=== PATIENT | male | born 1985 | race Caucasian/White ===

== ENCOUNTER 2021-01-13 23:51 | Emergency (ER) | payer SELFPAY ==
[~2021-01-13] VITALS: Ht 185.4 cm; Wt 88.6 kg
[2021-01-14] MEDS ORDERED: IV NORMAL SALINE 1000ML BAG 1,000 ML IV SCH
[2021-01-14 00:17] LABS: BASO # 0.1 x10^3/uL (0.0-0.2); BASO % 1 % (0-3); EOS # 0.1 x10^3/uL (0.0-0.7); EOS % 2 % (0-3); HEMATOCRIT 41.4 % (39.0-53.0); HEMOGLOBIN 14.3 g/dL (13.0-17.5); LYMPH # 2.1 x10^3/uL (1.0-4.8); LYMPH % 36 % (24-48); MEAN CORPUSCULAR HEMOGLOBIN 31 pg (25-35); MEAN CORPUSCULAR HGB CONC 35 g/dL (31-37); MEAN CORPUSCULAR VOLUME 90 fL (79-100); MONO # 1.2 x10^3/uL (0.0-1.1); MONO % 19 % (0-9); NEUT # 2.5 x10^3/uL (1.8-7.7); NEUT % 42 % (31-73); PLATELET COUNT 170 x10^3/uL (140-400); RED BLOOD COUNT 4.63 x10^6/uL (4.30-5.70); RED CELL DISTRIBUTION WIDTH 13.1 % (11.5-14.5)
--- NOTE | 2021-01-14 00:23 | PHYS DOC ---
Adult General Chief Complaint Chief Complaint: CHEST PAIN HPI HPI Patient is a 35 year old male with a known past medical history of substance abuse admits to using methamphetamines 3 hours prior to arrival prior history of IV drug abuse now presents emergency department plan of chest pain. Patient states his pain has been constant over the mid substernal region for the last 5 days. Going to another facility to get evaluated for this, states he had a full evaluation but left before he can get a diagnosis or treatment. States the pain is been present since the time. Denies any radiation. Has been associate mild lightheadedness but denies any associated nausea, vomiting of fever, chills, abdominal pain or back pain. Review of Systems Review of Systems Constitutional: Denies fever or chills [] Eyes: Denies change in visual acuity, redness, or eye pain [] HENT: Denies nasal congestion or sore throat [] Respiratory: Denies cough or shortness of breath [] Cardiovascular: No additional information not addressed in HPI [] GI: Denies abdominal pain, nausea, vomiting, bloody stools or diarrhea [] : Denies dysuria or hematuria [] Musculoskeletal: Denies back pain or joint pain [] Integument: Denies rash or skin lesions [] Neurologic: Denies headache, focal weakness or sensory changes [] Endocrine: Denies polyuria or polydipsia [] All other systems were reviewed and found to be within normal limits, except as documented in this note. Current Medications Current Medications Current Medications Medications (Trade) Dose Ordered Sig/Marni Start Time Stop Time Status Last Admin Dose Admin Sodium Chloride 1,000 ml @ 1,000 mls/hr Q1H 01/14/21 00:00 01/14/21 00:59 DC 01/14/21 00:14 1,000 MLS/HR Physical Exam Physical Exam Constitutional: Well developed, well nourished, no acute distress, non-toxic appearance. [] HENT: Normocephalic, atraumatic, bilateral external ears normal, oropharynx moist, no oral exudates, nose normal. [] Eyes: PERRLA, EOMI, conjunctiva normal, no discharge. [] Neck: Normal range of motion, no tenderness, supple, no stridor. [] Cardiovascular:Heart rate regular rhythm, no murmur [] Lungs & Thorax: Bilateral breath sounds clear to auscultation [] Abdomen: Bowel sounds normal, soft, no tenderness, no masses, no pulsatile masses. [] Skin: Warm, dry, no erythema, no rash. [] Back: No tenderness, no CVA tenderness. [] Extremities: No tenderness, no cyanosis, no clubbing, ROM intact, no edema. [] Neurologic: Alert and oriented X 3, normal motor function, normal sensory function, no focal deficits noted. [] Psychologic: Affect normal, judgement normal, mood normal. [] Current Patient Data Vital Signs Vital Signs Date Time Temp Pulse Resp B/P (MAP) Pulse Ox O2 Delivery O2 Flow Rate FiO2 01/13/21 23:55 98.7 108 19 151/92 (111) 100 Room Air 98.7 Lab Values Laboratory Tests Test 01/14/21 00:01 01/14/21 01:14 White Blood Count 6.0 x10^3/uL (4.0-11.0) Red Blood Count 4.63 x10^6/uL (4.30-5.70) Hemoglobin 14.3 g/dL (13.0-17.5) Hematocrit 41.4 % (39.0-53.0) Mean Corpuscular Volume 90 fL (79-100) Mean Corpuscular Hemoglobin 31 pg (25-35) Mean Corpuscular Hemoglobin Concent 35 g/dL (31-37) Red Cell Distribution Width 13.1 % (11.5-14.5) Platelet Count 170 x10^3/uL (140-400) Neutrophils (%) (Auto) 42 % (31-73) Lymphocytes (%) (Auto) 36 % (24-48) Monocytes (%) (Auto) 19 % (0-9) H Eosinophils (%) (Auto) 2 % (0-3) Basophils (%) (Auto) 1 % (0-3) Neutrophils # (Auto) 2.5 x10^3/uL (1.8-7.7) Lymphocytes # (Auto) 2.1 x10^3/uL (1.0-4.8) Monocytes # (Auto) 1.2 x10^3/uL (0.0-1.1) H Eosinophils # (Auto) 0.1 x10^3/uL (0.0-0.7) Basophils # (Auto) 0.1 x10^3/uL (0.0-0.2) Platelet Estimate Pending Sodium Level 139 mmol/L (136-145) Potassium Level 3.8 mmol/L (3.5-5.1) Chloride Level 103 mmol/L (98-107) Carbon Dioxide Level 27 mmol/L (21-32) Anion Gap 9 (6-14) Blood Urea Nitrogen 11 mg/dL (8-26) Creatinine 1.3 mg/dL (0.7-1.3) Estimated GFR (Cockcroft-Gault) 63.2 BUN/Creatinine Ratio 8 (6-20) Glucose Level 98 mg/dL (70-99) Calcium Level 9.2 mg/dL (8.5-10.1) Magnesium Level 2.1 mg/dL (1.8-2.4) Total Bilirubin 0.3 mg/dL (0.2-1.0) Aspartate Amino Transferase (AST) 28 U/L (15-37) Alanine Aminotransferase (ALT) 35 U/L (16-63) Alkaline Phosphatase 98 U/L (46-116) Troponin I Quantitative < 0.017 ng/mL (0.000-0.055) Total Protein 6.0 g/dL (6.4-8.2) L Albumin 3.6 g/dL (3.4-5.0) Albumin/Globulin Ratio 1.5 (1.0-1.7) Lipase 378 U/L (73-393) Urine Collection Type Unknown Urine Color Yellow Urine Clarity Clear Urine pH 8.0 (<5.0-8.0) Urine Specific [place] <=1.005 (1.000-1.030) Urine Protein Negative mg/dL (NEG-TRACE) Urine Glucose (UA) Negative mg/dL (NEG) Urine Ketones (Stick) Negative mg/dL (NEG) Urine Blood Negative (NEG) Urine Nitrite Negative (NEG) Urine Bilirubin Negative (NEG) Urine Urobilinogen Dipstick 1.0 mg/dL (0.2 mg/dL) Urine Leukocyte Esterase Negative (NEG) Urine RBC 0 /HPF (0-2) Urine WBC 0 /HPF (0-4) Urine Squamous Epithelial Cells Occ /LPF Urine Amorphous Sediment Present /HPF Urine Bacteria 0 /HPF (0-FEW) Urine Mucus Slight /LPF Urine Opiates Screen Neg (NEG) Urine Methadone Screen Neg (NEG) Urine Barbiturates Neg (NEG) Urine Phencyclidine Screen Neg (NEG) Urine Amphetamine/Methamphetamine Pos (NEG) Urine Benzodiazepines Screen Neg (NEG) Urine Cocaine Screen Neg (NEG) Urine Cannabinoids Screen Pos (NEG) Urine Ethyl Alcohol Neg (NEG) Laboratory Tests 01/14/21 00:01 Laboratory Tests 01/14/21 00:01 EKG EKG [] Radiology/Procedures Radiology/Procedures [] Course & Med Decision Making Course & Med Decision Making Pertinent Labs and Imaging studies reviewed. (See chart for details) 35M presenting with nonspecific substernal chest pain. Patient does admit to methamphetamine use and there is some concern for drug-seeking behavior given the patient's recent history of presenting for the same complaints and patient is repeatedly asking for stronger pain medication. Given the patient's history will obtain an ACS rule out before it is deemed safe to give the patient any pain medication. Labs reviewed and unremarkable. Chest x-ray without any significant abnormality. Feel patient is safe for discharge home. Dragon Disclaimer Dragon Disclaimer This electronic medical record was generated, in whole or in part, using a voice recognition dictation system. Departure Departure Impression: Primary Impression: Chest pain Disposition: 01 DC HOME SELF CARE/HOMELESS Condition: GOOD Referrals: LOLA MARTIN MD Patient Instructions: Chest Pain (Nonspecific) Additional Instructions: EMERGENCY DEPARTMENT GENERAL DISCHARGE INSTRUCTIONS Thank you for coming to [facility] Emergency Department (ED) today and trusting us with you care. We trust that you had a positive experience in our Emergency Department. If you wish to speak to the department management, you may call the Director at [phone]. YOUR FOLLOW UP INSTRUCTIONS ARE FOLLOWS: 1. Do you have a private Doctor? If you do not have a private doctor, please ask for a resource list of physicians or clinics that may be able to assist you with follow up care. 2. The Emergency Physicain has interpreted your x-rays. The X-Ray specialist will also review them. If there is a change in the findings, you will be notified in 48 hours when at all possible. 3. A lab test or culture has been done, your results will be reviewed and you will be notified if you need a change in treatment. ADDITIONAL INSTRUCTIONS AND INFORMATION: 1. Your care today has been supervised by a physician who is specially trained in emergency care. Many problems require more than one evaluation for a complete diagnosis and treatment. We recommend that you schedule your follow up appointment as recommended to ensure complete treatment of you illness or injury. If you are unable to obtain follow up care and continue to have a problem, or if your condition worsens, we recommend that you return to the ED. 2. We are not able to safely determine your condition over the phone nor are we able to give sound medical advice over the phone. For these safety reasons, if you call for medical advice we will ask you to come to the ED for further evaluation. 3. If you have any questions regarding these discharge instructions please call the ED at [phone]. SAFETY INFORMATION: In the interest of safety, wellness, and injury prevention; we encourage you to wear your sealbelt, if you smoke; quite smoking, and we encourage family to use a protective helmet for bicycling and other sporting events that present an increased risk for head injury. IF YOUR SYMPTOMS WORSEN OR NEW SYMPTOMS DEVELOP, OR YOU HAVE CONCERNS ABOUT YOUR CONDITION; OR IF YOUR CONDITION WORSENS WHILE YOU ARE WAITING FOR YOUR FOLLOW UP A PPOINTMENT; EITHER CONTACT YOUR PRIMARY CARE DOCTOR, THE PHYSICIAN WHOSE NAME AND NUMBER YOU WERE Elen NICOLAS, OR RETURN TO THE ED IMMEDIATELY. Scripts Naproxen (NAPROSYN) 500 Mg Tablet 1 TAB PO BID for pain, #20 TAB Prov: BRITTA MARQUIS MD 01/14/21 BRITTA MARQUIS MD Jan 14, 2021 00:23
[2021-01-14 00:40] LABS: CALCIUM 9.2 mg/dL (8.5-10.1); CREATININE 1.3 mg/dL (0.7-1.3); GFR 63.2; POTASSIUM 3.8 mmol/L (3.5-5.1)
--- NOTE | 2021-01-14 00:42 | RAD ---
XR CHEST 1V INDICATION: CHEST PAIN / Spl. Instructions: / History: . COMPARISON STUDY: None. FINDINGS: Lungs: Normal lung volume. No pulmonary mass or consolidation. The tracheobronchial tree and hilar st ructures are normal. Pleura: No pleural effusion or pneumothorax. Heart and Mediastinum: The cardiomediastinal silhouette is normal. The great vessels of the thorax ar e normal. Bones and Soft Tissues: The bones and soft tissues are within normal limits. IMPRESSION: No acute cardiopulmonary process. Electronically signed by: Dallin Osullivan MD (01/14/2021 12:40 AM) [facility]
[2021-01-14 00:47] LABS: ALBUMIN 3.6 g/dL (3.4-5.0); ALBUMIN/GLOBULIN RATIO 1.5 (1.0-1.7); MAGNESIUM 2.1 mg/dL (1.8-2.4); TOTAL BILIRUBIN 0.3 mg/dL (0.2-1.0)
[2021-01-14 01:29] LABS: BILIRUBIN,URINE NEGATIVE (NEG); CLARITY,URINE CLEAR; COLOR,URINE YELLOW; NITRITE,URINE NEGATIVE (NEG); PROTEIN,URINE NEGATIVE (NEG-TRACE)
[2021-01-14 01:35] LABS: BARBITURATES NEG (NEG); BENZODIAZEPINES NEG (NEG); CANNABINOIDS POS (NEG); COCAINE NEG (NEG); METHADONE NEG (NEG); OPIATES NEG (NEG); PHENCYCLIDINE NEG (NEG)
[2021-01-14 01:36] LABS: AMPHETAMINE/METHAMPHETAMINE POS (NEG)
[2021-01-14 01:39] LABS: AMORPHOUS SEDIMENT,UR PRESENT /HPF; BACTERIA,URINE 0 /HPF (0-FEW); RBC,URINE 0 /HPF (0-2); WBC,URINE 0 /HPF (0-4)
[2021-01-14 01:42] VITALS: BP 154/93
[2021-01-14] MEDS ORDERED: NAPR-683 PO (01:46)
[2021-01-14] MEDS ORDERED: IBUPROFEN 400 MG TABLET. PO ONE (02:00)
[2021-01-14] MEDS ORDERED: ACETAMINOPHEN 500 MG TABLET PO ONE (02:00)
--- NOTE | 2021-01-14 02:46 | EKG ---
[facility] [address] [place] [address] Test Date: 2021-01-13 Test Time: 23:56:10 Pat Name: KELLIE IGNACIO Department: Room: Gender: M Contact Lens Assistant: : [id number] Requested By: BRITTA MARQUIS Order Number: [id number] Reading MD: Measurements Intervals [place] Rate: 101 P: 1 MS: 154 QRS: -19 QRSD: 86 T: 54 QT: 330 QTc: 429 Interpretive Statements SINUS TACHYCARDIA LEFTWARD AXIS QRS(T) CONTOUR ABNORMALITY CONSISTENT WITH ANTEROSEPTAL INFARCT AGE UNDETERMINED ABNORMAL ECG RI6.02 No previous ECG available for comparison
[2021-01-14 03:55] LABS: % ATYL 4 % (0-0); % EOS 3 % (0-5); % LYMPHS 42 % (24-48); % MONOS 11 % (0-10); % SEGS 40 % (35-66)
[2021-01-14 03:56] LABS: PLT ESTIMATE ADEQUATE (ADEQUATE)
== END 2021-01-14 01:56 | disposition home or self-care (01) ==
LOC: ER 23:51
DX: R07.89 Other chest pain (principal); F15.10 Other stimulant abuse, uncomplicated
CPT/HCPCS: 36415; 71045; 80053; 80307; 81001; 83690; 83735; 84484; 85007; 85025; 93005; 96360; 99285; J7030

== ENCOUNTER 2021-03-15 14:22 | Emergency (ER) | payer SELFPAY ==
[~2021-03-15] VITALS: Ht 185.4 cm; Wt 82.7 kg
[~2021-03-15 14:22] MED LIST: NAPR-683 PO
--- NOTE | 2021-03-15 16:17 | RAD ---
Study: XR HAND_RIGHT 3 VIEWS Indication: Right hand pain. Recent fracture. Comparison: None. Findings: Acute, dorsally angulated and mildly displaced fractures at the fourth and fifth metacarpal bases. On the PA view it appears as if the fourth metacarpal fracture extends into the CMC joint. It is uncert ain if there is intra-articular extension at the fifth metacarpal fracture. No additional fracture se en throughout the hand. Edematous soft tissues adjacent to the fractures. Impression: Acute, dorsally angulated and mildly displaced fractures at the base of the fourth and fifth metacarp als. There is likely intra-articular extension into the fourth CMC joint. It is difficult to discern if there is intra-articular extension to the fifth CMC joint. Electronically signed by: PARUL ASHER MD (03/15/2021 4:14 PM) [facility]
[2021-03-15 17:00] VITALS: BP 129/88
[2021-03-15] MEDS ORDERED: HYDROcodone/APAP 5/325MG 1 TAB TABLET PO ONE (17:00)
[2021-03-15] MEDS ORDERED: HYDR-2761 PO (17:07)
--- NOTE | 2021-03-15 17:07 | ED.ADGEN ---
Past Medical History Past Medical History: No Pertinent History Additional Past Medical Histor: SUBSTANCE ABUSE Past Surgical History: Tonsillectomy Smoking Status: Current Every Day Smoker Alcohol Use: Rarely General Adult EDM: Chief Complaint: HAND PROBLEM HPI: HPI: Patient is a 35 year old male who presents to the emergency department with complaints of continued pain in his right lateral hand. Patient reports that on March 06, 2021 he punched a brick wall and was evaluated at [facility] where he was diagnosed with fractures of his fourth and fifth fingers. Patient reports that he went to the hand specialist today for follow-up but he did not have $150 to pay therefore they would not see him. Patient denies any new injury. He states that he took the splint that was applied off prior to going to the specialist for follow-up. Patient denies any decreased sensation available, he reports limited range of motion due to pain. He currently rates the pain a 9 out of 10 on the pain scale, the pain increases to a 10 with palpation. Review of Systems: Review of Systems: Complete ROS is negative unless otherwise noted in HPI. Current Medications: Current Medications Medications (Trade) Dose Ordered Sig/Marni Start Time Stop Time Status Last Admin Dose Admin Acetaminophen/ Hydrocodone Bitart (Lortab 5/325) 1 tab 1X ONCE 03/15/21 17:00 03/15/21 17:01 DC 03/15/21 16:56 1 TAB Allergies: Allergies: Allergies Coded Allergies Type Severity Reaction Last Updated Verified Penicillins Allergy Unknown 01/14/21 Yes Physical Exam: PE: See Above Constitutional: Well developed, well nourished, no acute distress, non-toxic appearance. [] HENT: Normocephalic, atraumatic, bilateral external ears normal, nose normal. [] Eyes: PERRLA, EOMI, conjunctiva normal, no discharge. [] Neck: Normal range of motion, no stridor. [] Cardiovascular:Heart rate regular rhythm Lungs & Thorax: Respirations even and unlabored, no retractions, no respiratory distress Skin: Warm, dry, no erythema, no rash. [] Extremities: Right hand: 1+ edema with tenderness to palpation over the fourth and fifth metacarpals, no tenting of skin, sensation intact, no cyanosis, ROM limited due to pain Neurologic: Alert and oriented X 3, no focal deficits noted. [] Psychologic: Affect normal, judgement normal, mood normal. [] Current Patient Data: Vital Signs: Vital Signs Date Time Temp Pulse Resp B/P (MAP) Pulse Ox O2 Delivery O2 Flow Rate FiO2 03/15/21 16:56 16 98 Room Air 03/15/21 15:00 97.7 97 135/94 (108) 97.7 EKG: EKG: [] Heart Score: C/O Chest Pain: No Risk Scores: Score 0 - 3: 2.5% MACE over next 6 weeks - Discharge Home Score 4 - 6: 20.3% MACE over next 6 weeks - Admit for Clinical Observation Score 7 - 10: 72.7% MACE over next 6 weeks - Early Invasive Strategies Radiology/Procedures: Radiology/Procedures: PROCEDURE: HAND RIGHT 3V Study: XR HAND_RIGHT 3 VIEWS Indication: Right hand pain. Recent fracture. Comparison: None. Findings: Acute, dorsally angulated and mildly displaced fractures at the fourth and fifth metacarpal bases. On the PA view it appears as if the fourth metacarpal fracture extends into the CMC joint. It is uncertain if there is intra-articular extension at the fifth metacarpal fracture. No additional fracture seen throughout the hand. Edematous soft tissues adjacent to the fractures. Impression: Acute, dorsally angulated and mildly displaced fractures at the base of the fourth and fifth metacarpals. There is likely intra-articular extension into the fourth CMC joint. It is difficult to discern if there is intra-articular extension to the fifth CMC joint. Electronically signed by: PARUL ASHER MD (03/15/2021 4:14 PM) [facility] DICTATED and SIGNED BY: PARUL ASHER MD[] Course & Med Decision Making: Course & Med Decision Making Pertinent Labs and Imaging studies reviewed. (See chart for details) 1635- I spoke with Dr. Díaz about the patient, he will need to follow up with a hand surgeon as previously instruction. Will replace ulnar gutter splint. Patient was placed in a ulnar gutter splint by nursing staff. Prescription was written for hydrocodone. Encourage patient to follow-up with a hand specialist as he will likely need surgery to correct his fractures. Patient verbalized an understanding of home care, medications, follow-up, and return to ED instructions and was in agreement with the plan of care. [] Dragon Disclaimer: Dragon Disclaimer: This electronic medical record was generated, in whole or in part, using a voice recognition dictation system. 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 Recommend application of ice, elevation, and rest of affected extremity. Wear the splint that was placed until follow up appointment. Follow-up with orthopedic hand surgeon as previously recommended. Return to the ER if your symptoms worsen. Scripts Hydrocodone Bit/Acetaminophen (HYDROCODONE-APAP 5-325 ) 1 Tab Tablet 0.5-1 TAB PO PRN Q6HRS PRN for SEVERE PAIN 7-10 for 3 Days, #12 TAB 0 Refills Prov: HANH FABIAN WEB SOFTWARE ENGINEER 03/15/21 Splinting Splinting : Location: Right hand Hand-Made Type: orthoglass Splint: ulnar (Ulnar gutter) Pre-Proc Neuro Vasc Exam: normal Post-Proc Neuro Vasc Exam: normal, unchanged from pre-exam Progress An ulnar gutter splint was applied to the patient's right hand after cotton padding was applied over the splinted area by professor of nursing. Cap refill remains less than 2 seconds following splint application. 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
== END 2021-03-15 17:17 | disposition home or self-care (01) ==
LOC: ER 14:22
DX: S62.314A Displaced fracture of base of fourth metacarpal bone, right hand, initial encounter for closed fracture (principal); S62.316A Displaced fracture of base of fifth metacarpal bone, right hand, initial encounter for closed fracture; F17.200 Nicotine dependence, unspecified, uncomplicated; Z88.0 Allergy status to penicillin; W22.01XA Walked into wall, initial encounter; Y93.89 Activity, other specified; Y92.89 Other specified places as the place of occurrence of the external cause; Y99.8 Other external cause status
CPT/HCPCS: 29125; 73130; 99283